=== PATIENT | male | born 1965 | race Caucasian/White ===

== ENCOUNTER 2023-07-21 15:43 | Emergency (ER) | payer MEDICARE, OTHER ==
[~2023-07-21] VITALS: Ht 177.8 cm; Wt 113.4 kg
[2023-07-21 15:45] VITALS: BP_SYST 130; PULSE 100; RESP 20; TEMP 97; O2SAT 100
[2023-07-21] MEDS ORDERED: NACL 0.9% 1,000 ML IV ONE (16:00)
[2023-07-21] MEDS ORDERED: LORazepam 2 MG/ML VIAL IVP ONE (17:15)
[2023-07-21 17:42] LABS: BASOPHILS % (AUTO) 0.2 % (0.0-2.0); EOSINOPHILS # (AUTO) 0.1 K/uL (0.0-0.4); EOSINOPHILS % (AUTO) 0.5 % (0.0-4.0); HEMATOCRIT 27.5 % (36-54); HEMOGLOBIN 8.8 g/dL (14.0-18.0); LYMPHOCYTES # (AUTO) 1.6 K/uL (1.0-5.5); LYMPHOCYTES % (AUTO) 15.4 % (20.5-51.5); MEAN CORPUSCULAR HEMOGLOBIN 32 pg (27-31); MEAN CORPUSCULAR HGB CONC 32 % (32-36); MEAN CORPUSCULAR VOLUME 101 fL (79.0-98.0); MONOCYTES # (AUTO) 0.7 K/uL (0.0-1.0); MONOCYTES % (AUTO) 6.3 % (1.7-9.3); NEUTROPHILS # (AUTO) 8.1 K/uL (1.8-7.7); NEUTROPHILS % (AUTO) 77.6 % (40.0-70.0); PLATELET COUNT (AUTO) 128 K/uL (130-430); RED BLOOD CELL COUNT(AUTO) 2.74 MIL/uL (4.2-6.2); RED CELL DISTRIBUTION WIDTH 16.4 % (9.0-15.0); WHITE BLOOD COUNT (AUTO) 10.5 K/uL (4.8-10.8)
[2023-07-21 17:56] LABS: ALANINE AMINOTRANSFERASE 15 U/L (12-78); ANION GAP 19 (5-15); ASPARTATE AMINOTRANSFERASE 100 U/L (10-37); CALCIUM 8.8 mg/dL (8.4-11.0); CARBON DIOXIDE 15 mmol/L (23-29); CHLORIDE 103 mmol/L (98-107); CREATININE 3.34 mg/dL (0.55-1.30); GFR AFRICAN AMERICAN 25 mL/min (>90); GLUCOSE 61 mg/dL (74-106); SODIUM SERUM 137 mmol/L (136-145); TOTAL BILIRUBIN 4.4 mg/dL (0.0-1.0); TOTAL PROTEIN, SERUM 8.2 g/dL (6.4-8.3); UREA NITROGEN, BLOOD 38 mg/dL (8-21)
[2023-07-21 17:59] LABS: ACETAMINOPHEN < 1 ug/mL (1-30); ALCOHOL, BLOOD < 3 mg/dL (<10); BILIRUBIN,DIRECT 1.8 mg/dL (0.0-0.3); CREATINE KINASE, TOTAL 780 U/L (39-308); GFR NON AFRICAN-AMERICAN 21 mL/min (>90); SALICYLATE < 1 mg/dL (3-30)
[2023-07-21 18:00] LABS: POTASSIUM 3.8 mmol/L (3.5-5.1)
[2023-07-21] MEDS ORDERED: PIPERACILLIN/TAZOBACTAM 2.25 GM in NS 50 ML IV ONE (18:30)
[2023-07-21 18:44] LABS: CKMB RELATIVE INDEX 1.3 (0.0-2.9); CREATINE KINASE MB 9.9 ng/mL (0-3.6)
[2023-07-21 19:51] LABS: INR 2.1 (0.80-1.20); PROTHROMBIN TIME 21.2 SECS (9.5-12.5)
[2023-07-21 20:15] LABS: INFLUENZA TYPE A Negative (NEGATIVE); INFLUENZA TYPE B NEGATIVE (NEGATIVE)
[2023-07-21] MEDS ORDERED: RIFAXIMIN 550 MG TABLET PO ONE (20:15)
[2023-07-21] MEDS ORDERED: LACTULOSE 20 GM/30 ML UDC PO ONE (20:15)
[2023-07-21 20:49] LABS: BILIRUBIN,URINE 2+ (NEGATIVE); BLOOD, URINE 2+ (NEGATIVE); CLARITY/URINE SL CLOUDY (CLEAR); COLOR,URINE YELLOW (YELLOW); GLUCOSE,URINE NEGATIVE (NEGATIVE); KETONES,URINE TRACE (NEGATIVE); LEUKOCYTE ESTERASE ,URINE TRACE (NEGATIVE); NITRITE, URINE NEGATIVE (NEGATIVE); PH,URINE 5.5 (5.0-8.0); PROTEIN URINE 1+ (NEGATIVE)
[2023-07-21] MEDS ORDERED: DEXTROSE 50% JECT 50 ML DISP.SYRIN IVP ONE (21:00)
[2023-07-21 21:21] LABS: BACTERIA,URINE FEW /HPF (None Seen)
[2023-07-21] MEDS ORDERED: PIPERACILLIN/TAZOBACTAM 2.25 GM VIAL IV ONE (23:49)
[2023-07-21] MEDS ORDERED: DEXTROSE 50% JECT 50 ML DISP.SYRIN ONE (23:49)
[2023-07-22] MEDS ORDERED: LACTULOSE 20 GM/30 ML UDC ONE (00:58)
[2023-07-22] MEDS ORDERED: DEXTROSE 50% JECT 50 ML DISP.SYRIN IVP ONE (01:45)
[2023-07-22 03:00] VITALS: BP_SYST 159; PULSE 110; RESP 21; TEMP 97.1; O2SAT 99
== END 2023-07-22 03:00 | disposition short-term general hospital (02) ==
LOC: SED 15:43
DX: K76.82 Hepatic encephalopathy (principal); K74.60 Unspecified cirrhosis of liver; D64.9 Anemia, unspecified; R18.8 Other ascites; N28.9 Disorder of kidney and ureter, unspecified; E16.2 Hypoglycemia, unspecified; R41.82 Altered mental status, unspecified; Z79.899 Other long term (current) drug therapy; Z20.822 Contact with and (suspected) exposure to COVID-19
CPT/HCPCS: 99291; 96365; 70450; 76700; 93971; 71045; 96375; 96361; 87426; 80076; 80048; 82140; 82550; 82553; 82962; 85025; 85610; 85730; 87040; 87086; 84484; 36415; 93005; 73600; 73620; 76376; 83605; 87804 ×2; 81001; 81000; 96376; 81015; G0482; J2060; J2543; J7030; G0480; G0481

== ENCOUNTER 2023-10-30 11:37 | Inpatient (IN) | payer MEDICARE, OTHER ==
[~2023-10-30] VITALS: Ht 172.7 cm; Wt 81.2 kg
[2023-10-30 11:41] VITALS: BP_SYST 112; PULSE 102; RESP 20; TEMP 97.5; O2SAT 97
[2023-10-30 12:56] LABS: BASOPHILS % (AUTO) 0.1 % (0.0-2.0); HEMOGLOBIN 13.2 g/dL (14.0-18.0); LYMPHOCYTES # (AUTO) 0.3 K/uL (1.0-5.5); LYMPHOCYTES % (AUTO) 4.9 % (20.5-51.5); MEAN CORPUSCULAR HEMOGLOBIN 32 pg (27-31); MEAN CORPUSCULAR HGB CONC 33 % (32-36); MEAN CORPUSCULAR VOLUME 96 fL (79.0-98.0); MONOCYTES # (AUTO) 0.1 K/uL (0.0-1.0); MONOCYTES % (AUTO) 1.6 % (1.7-9.3); NEUTROPHILS # (AUTO) 5.2 K/uL (1.8-7.7); NEUTROPHILS % (AUTO) 93.4 % (40.0-70.0); PLATELET COUNT (AUTO) 135 K/uL (130-430); RED BLOOD CELL COUNT(AUTO) 4.16 MIL/uL (4.2-6.2); RED CELL DISTRIBUTION WIDTH 17.4 % (9.0-15.0); WHITE BLOOD COUNT (AUTO) 5.6 K/uL (4.8-10.8)
[2023-10-30 13:14] LABS: INR 2.1 (0.80-1.20); PROTHROMBIN TIME 20.6 SECS (9.5-12.5)
[2023-10-30] MEDS: MORPHINE 2 MG/ML INJ. SYRINGE IVP ONE (13:19)
[2023-10-30 14:04] LABS: ALBUMIN 1.9 g/dL (3.4-4.8); BILIRUBIN,DIRECT 1.1 mg/dL (0.0-0.3); CALCIUM 8.3 mg/dL (8.4-11.0); CREATININE 1.52 mg/dL (0.55-1.30); POTASSIUM 4.1 mmol/L (3.5-5.1); TOTAL BILIRUBIN 2.7 mg/dL (0.0-1.0); TOTAL PROTEIN, SERUM 7.3 g/dL (6.4-8.3)
[2023-10-30] MEDS ORDERED: DEXTROSE 50% JECT 50 ML DISP.SYRIN ONE (14:13)
[2023-10-30] MEDS: DEXTROSE 50% JECT 50 ML DISP.SYRIN IVP ONE ×2 (14:57→16:07)
[2023-10-30] MEDS: D5/0.45 NS 1,000 ML IV ONE (14:57)
[2023-10-30] MEDS: ONDANSETRON HCL 4 MG/2 ML VIAL IVP ONE (16:06)
[2023-10-30 16:56] LABS: APPEARANCE,SPUN,BODY FLUID CLOUDY (CLEAR); BF APPEARANCE UNSPUN HAZY (CLEAR); BODY FLUID COLOR YELLOW (LT YELLOW); SOURCE/TYPE ,BODY FLUID PERITONEAL
[2023-10-30 16:57] LABS: BODY FLUID TOTAL VOLUME 6850 mL; LYMPHOCYTES, BODY FLUID 8 %; MONOCYTES,BODY FLUID 2 %; NEUTROPHIL, BODY FLUID 90 %; RBC, BODY FLUID 200 /uL; WBC, BODY FLUID 1585 /uL
[2023-10-30] MEDS ORDERED: ALBUTEROL SULFATE 0.083% 2.5 MG/3 ML VIAL.NEB INH PRN (17:15)
[2023-10-30 17:21] VITALS: PULSE 103; O2SAT 99
[2023-10-30] MEDS ORDERED: ACETAMINOPHEN 650 MG SUPP.RECT RC ONE (17:24)
[2023-10-30] MEDS ORDERED: MAGNESIUM SULFATE 50 ML IV PRN (17:30)
[2023-10-30] MEDS ORDERED: POTASSIUM CHLORIDE 20 MEQ TABLET.ER PO PRN (17:30)
[2023-10-30] MEDS ORDERED: MORPHINE 2 MG/ML INJ. SYRINGE IVP PRN (17:30)
[2023-10-30] MEDS: ALBUMIN HUMAN 25% 50 ML IV ONE (17:30)
[2023-10-30] MEDS ORDERED: DOCUSATE SODIUM 100 MG CAPSULE PO PRN (17:30)
[2023-10-30] MEDS ORDERED: MUPIROCIN 2% TOPICAL OINTMENT 22 GM NS PRN (17:30)
[2023-10-30] MEDS: NACL 0.9% 1,000 ML IV ONE ×4 (17:31→21:04)
[2023-10-30] MEDS ORDERED: PIPERACILLIN/TAZOBACTAM 3.375 GM/VIAL (ZOSYN) IV ONE (17:35)
[2023-10-30] MEDS ORDERED: MEROPENEM 1 GM IVPB PREMIX 50 ML IV SCH (17:45)
[2023-10-30] MEDS: MEROPENEM 1 GM IVPB PREMIX 50 ML IV ONE (17:45)
[2023-10-30] MEDS: PIPERACILLIN/TAZO 3.375 GM in NS 50 ML IV ONE (18:15)
[2023-10-30] MEDS: ACETAMINOPHEN 650 MG SUPP.RECT RC ONE (18:15)
[2023-10-30] MEDS: D5/0.45 NS 1,000 ML IV SCH (18:16)
[2023-10-30] MEDS: IBUPROFEN 600 MG TABLET PO ONE (18:48)
[2023-10-30] MEDS ORDERED: MEROPENEM 500 MG VIAL IV ONE (19:26)
[2023-10-30] MEDS: ALBUMIN HUMAN 25% 100 ML IV ONE (19:33)
[2023-10-30] MEDS: DEXTROSE 50% JECT 50 ML DISP.SYRIN IVP PRN (20:16)
[2023-10-30] MEDS ORDERED: NOREPINEPHRINE BITARTRATE 4 MG in D5W 246 ML IV PRN (20:30)
[2023-10-30] MEDS ORDERED: NOREPINEPHRINE 4 MG/4 ML VIAL IV ONE (20:46)
[2023-10-30] MEDS: HYDROCORTISONE SOD SUCC 100 MG/2 ML VIAL IVP SCH (21:00)
[2023-10-30] MEDS: NOREPINEPHRINE BITARTRATE 4 MG in D5W 246 ML IV PRN (21:00)
[2023-10-30 21:03] LABS: BODY FLUID GLUCOSE 10 mg/dL; BODY FLUID TOTAL PROTEIN 1.9 g/dL
[2023-10-30 21:55] LABS: BILIRUBIN,URINE 2+ (NEGATIVE); BLOOD, URINE 2+ (NEGATIVE); CLARITY/URINE CLEAR (CLEAR); GLUCOSE,URINE NEGATIVE (NEGATIVE); KETONES,URINE 1+ (NEGATIVE); LEUKOCYTE ESTERASE ,URINE NEGATIVE (NEGATIVE); PROTEIN URINE 1+ (NEGATIVE)
[2023-10-30 22:02] LABS: COLOR,URINE AMBER (YELLOW); NITRITE, URINE NEGATIVE (NEGATIVE)
[2023-10-30 22:03] LABS: BACTERIA,URINE FEW /HPF (None Seen); HYALINE CASTS, URINE 0-10 /LPF (None Seen); MUCUS,URINE None Seen /LPF (None Seen); RBC,URINE 0-3 /HPF (0-3); WBC,URINE 0-3 /HPF (0-3)
[2023-10-30] MEDS ORDERED: VANCOMYCIN HCL 1000 MG/VIAL IV ONE (22:18)
[2023-10-30] MEDS: VANCOMYCIN HCL 1 GM/NS PREMIX 250 ML IV ONE (22:23)
[2023-10-30] MEDS: ACETAMINOPHEN 650 MG SUPP.RECT RC PRN (22:37)
[2023-10-30] MEDS: D10W 1,000 ML IV SCH (23:10)
[2023-10-30] MEDS: DEXTROSE 10%-WATER 500 ML IV STA (23:10)
[2023-10-31] VITALS (10 sets, daily range): BP systolic 74–151; PULSE 93–111; RESP 24–30; TEMP 97; O2SAT 44–58
[2023-10-31] MEDS: ONDANSETRON HCL 4 MG/2 ML VIAL IVP PRN (01:24)
[2023-10-31] MEDS ORDERED: PIPERACILLIN/TAZOBACTAM 3.375 GM/VIAL (ZOSYN) IV ONE ×2 (01:43)
[2023-10-31] MEDS: PIPERACILLIN/TAZO 3.375 GM in NS 50 ML IV SCH (01:55)
[2023-10-31] MEDS ORDERED: NOREPINEPHRINE 4 MG/4 ML VIAL IV ONE ×2 (01:59→05:19)
[2023-10-31] MEDS: ACETAMINOPHEN 325 MG TABLET PO PRN (02:41)
[2023-10-31 04:12] LABS: BASOPHILS % (AUTO) 0.2 % (0.0-2.0); HEMATOCRIT 37.2 % (36-54); HEMOGLOBIN 12.1 g/dL (14.0-18.0); LYMPHOCYTES # (AUTO) 0.6 K/uL (1.0-5.5); LYMPHOCYTES % (AUTO) 3.7 % (20.5-51.5); MEAN CORPUSCULAR HEMOGLOBIN 32 pg (27-31); MEAN CORPUSCULAR HGB CONC 32 % (32-36); MEAN CORPUSCULAR VOLUME 98 fL (79.0-98.0); MONOCYTES # (AUTO) 0.3 K/uL (0.0-1.0); MONOCYTES % (AUTO) 1.7 % (1.7-9.3); NEUTROPHILS # (AUTO) 14.7 K/uL (1.8-7.7); NEUTROPHILS % (AUTO) 94.4 % (40.0-70.0); PLATELET COUNT (AUTO) 101 K/uL (130-430); RED CELL DISTRIBUTION WIDTH 17.5 % (9.0-15.0); WHITE BLOOD COUNT (AUTO) 15.6 K/uL (4.8-10.8)
[2023-10-31 04:24] LABS: CALCIUM 7.2 mg/dL (8.4-11.0); CREATININE 2.15 mg/dL (0.55-1.30); POTASSIUM 3.7 mmol/L (3.5-5.1)
[2023-10-31] MEDS: ONDANSETRON HCL 4 MG/2 ML VIAL IVP ONE (04:29)
[2023-10-31] MEDS: NOREPINEPHR 4 MG/250 mL NS 250 ML IV PRN (08:39)
[2023-10-31] MEDS: RIFAXIMIN 550 MG TABLET PO SCH (09:00)
[2023-10-31] MEDS: MORPHINE 2 MG/ML INJ. SYRINGE IVP PRN (09:03)
[2023-10-31] MEDS: METOCLOPRAMIDE HCL 10 MG/2 ML VIAL IVP ONE (09:16)
[2023-10-31] MEDS ORDERED: DEXTROSE 50% JECT 50 ML DISP.SYRIN ONE ×2 (09:32→14:06)
[2023-10-31] MEDS: NOREPINEPHRINE BITARTRATE 16 MG in D5W 234 ML IV PRN (09:48)
[2023-10-31] MEDS: MORPHINE 2 MG/ML INJ. SYRINGE IVP ONE (11:06)
[2023-10-31] MEDS: LEVOFLOXACIN 250 MG/D5W 50 ML IV SCH (13:45)
[2023-10-31] MEDS ORDERED: PROPOFOL DRIP 100 ML IV PRN (14:30)
[2023-10-31] MEDS: LACTULOSE 20 GM/30 ML UDC PO SCH (15:18)
[2023-10-31 15:38] LABS: BLOOD GAS BASE EXCESS -30.1 mmol/L (-3.0-3.0); BLOOD GAS PO2 80.6 mmHg (75.0-100.0)
[2023-10-31] MEDS ORDERED: SODIUM BICARBONATE 8.4% JECT 50 MEQ/50 ML SYRINGE ONE ×2 (15:47→19:52)
[2023-10-31 16:01] LABS: BLOOD GAS HCO3 8.3 mmol/L (21.0-27.0); BLOOD GAS PCO2 15.5 mmHg (32.0-45.0); BLOOD GAS PH 7.344 (7.350-7.450); BLOOD GAS PO2 285.5 mmHg (75.0-100.0)
[2023-10-31 16:02] LABS: ABG O2 SAT% ESTIMATE 99.7 % (94.0-100.0); ALLEN'S TEST POSITIVE (P); BLOOD GAS BASE EXCESS -14.4 mmol/L (-3.0-3.0)
[2023-10-31 16:08] LABS: BLOOD GAS PCO2 53.8 mmHg (32.0-45.0); BLOOD GAS PH 6.714 (7.350-7.450)
[2023-10-31] MEDS: SODIUM BICARBONATE 8.4% VIAL 50 MEQ/50 ML VIAL INJ ONE (16:08)
[2023-10-31 16:09] LABS: ABG O2 SAT% ESTIMATE 76.8 % (94.0-100.0); ALLEN'S TEST POSITIVE (P); BLOOD GAS HCO3 6.7 mmol/L (21.0-27.0)
[2023-10-31] MEDS: SODIUM BICARBONATE 8.4% VIAL 150 MEQ in D5W 1,000 ML IV SCH (16:42)
[2023-10-31] MEDS: SODIUM BICARBONATE 8.4% JECT 50 MEQ/50 ML SYRINGE IVP ONE ×3 (17:18→21:05)
[2023-10-31] MEDS ORDERED: SODIUM BICARBONATE 0.5 MEQ/ML VIAL INJ ONE (20:00)
[2023-10-31] MEDS ORDERED: NOREPINEPHRINE BITARTRATE IV PRN (21:00)
[2023-10-31] MEDS ORDERED: D5W IV PRN (21:00)
[2023-10-31] MEDS ORDERED: SODIUM BICARBONATE 8.4% JECT 50 MEQ/50 ML SYRINGE IVP ONE ×2 (21:00)
[2023-10-31] MEDS ORDERED: VANCOMYCIN HCL 1,000 MG in NS 250 ML IV SCH (21:00)
[2023-10-31] MEDS: PHENYLEPHRINE HCL 10 MG/ML VIAL (NEOSYNEPHRINE) ONE (22:20)
[2023-10-31] MEDS: VASOPRESSIN 20 UNITS/ML VIAL IV ONE (22:20)
[2023-10-31] MEDS: VASOPRESSIN 20 UNITS in NS 99 ML IV PRN (22:24)
[2023-10-31] MEDS: MEROPENEM 500 MG in NS 50 ML IV SCH (23:04)
[2023-11-01] VITALS (18 sets, daily range): BP systolic 44–121; PULSE 76–142; RESP 22–33; TEMP 96.3–98; O2SAT 16–53
[2023-11-01] MEDS: NOREPINEPHRINE BITARTRATE 16 MG in D5W 234 ML IV PRN (01:20)
[2023-11-01] MEDS: PHENYLEPHRINE HCL 50 MG in NS 245 ML IV PRN (01:20)
[2023-11-01] MEDS: PHENYLEPHRINE HCL 10 MG/ML VIAL (NEOSYNEPHRINE) ONE ×2 (01:41→04:26)
[2023-11-01] MEDS: VASOPRESSIN 20 UNITS/ML VIAL IV ONE (04:25)
[2023-11-01] MEDS: NOREPINEPHRINE 4 MG/4 ML VIAL IV ONE (04:42)
[2023-11-01] MEDS: EPINEPHrine HCL 5 MG in NS 245 ML IV PRN (05:13)
[2023-11-01] MEDS: EPINEPHrine HCL 1 MG/ML VIAL ONE (05:14)
[2023-11-01] MEDS ORDERED: DEXTROSE 50% JECT 50 ML DISP.SYRIN ONE (08:06)
[2023-11-01] MEDS ORDERED: EPINEPHrine JECT 0.1 MG/ML SYR ONE (08:06)
[2023-11-01] MEDS ORDERED: SODIUM BICARBONATE 8.4% JECT 50 MEQ/50 ML SYRINGE ONE (08:06)
[2023-11-01] MEDS ORDERED: EPINEPHrine HCL 10 MG in NS 240 ML IV PRN (08:30)
[2023-11-01 08:52] LABS: HEMATOCRIT 26.3 % (36-54); HEMOGLOBIN 7.4 g/dL (14.0-18.0); MEAN CORPUSCULAR HEMOGLOBIN 32 pg (27-31); MEAN CORPUSCULAR HGB CONC 28 % (32-36); MEAN CORPUSCULAR VOLUME 114 fL (79.0-98.0); RED CELL DISTRIBUTION WIDTH 18.7 % (9.0-15.0)
[2023-11-01 08:54] LABS: PLATELET COUNT (AUTO) 68 K/uL (130-430)
[2023-11-01 08:56] LABS: WHITE BLOOD COUNT (AUTO) 3.5 K/uL (4.8-10.8)
[2023-11-01 09:06] LABS: CREATININE 2.88 mg/dL (0.55-1.30)
[2023-11-01 09:43] LABS: POTASSIUM 9.7 mmol/L (3.5-5.1)
[2023-11-01 09:45] LABS: CALCIUM 6.9 mg/dL (8.4-11.0)
[2023-11-01 10:27] LABS: BAND % (MANUAL) 14 % (0-6); LYMPHOCYTES % (MANUAL) 55 % (20-46)
[2023-11-01 10:28] LABS: ANISOCYTOSIS 1+; BASOPHILS % (MANUAL) 0 % (0-2); EOSINOPHILS % (MANUAL) 0 % (0-7); METAMYELOCYTES % 8 % (0-0); MONOCYTES % (MANUAL) 15 % (0-11); PLATELET ESTIMATE DECREASED (ADEQUATE)
== END 2023-11-01 17:13 | DRG 871 ==
LOC: SED 11:37 → STU 17:13 → SIC 18:40
PROVIDERS: ADMIT Family Medicine; ATTEND Family Medicine
PROC: 0W9G3ZZ Drainage of Peritoneal Cavity, Percutaneous Approach (ICD-10-PCS; principal; 2023-10-30)
PROC: 02HV33Z Insertion of Infusion Device into Superior Vena Cava, Percutaneous Approach (ICD-10-PCS; 2023-10-30)
PROC: B548ZZA Ultrasonography of Superior Vena Cava, Guidance (ICD-10-PCS; 2023-10-30)
PROC: 0BH17EZ Insertion of Endotracheal Airway into Trachea, Via Natural or Artificial Opening (ICD-10-PCS; 2023-10-31)
PROC: 5A1935Z Respiratory Ventilation, Less than 24 Consecutive Hours (ICD-10-PCS; 2023-10-31)
PROC: 5A12012 Performance of Cardiac Output, Single, Manual (ICD-10-PCS; 2023-11-01)
DX: A41.9 Sepsis, unspecified organism (principal); G93.41 Metabolic encephalopathy; K65.2 Spontaneous bacterial peritonitis; R65.21 Severe sepsis with septic shock; N17.0 Acute kidney failure with tubular necrosis; E87.1 Hypo-osmolality and hyponatremia; K76.6 Portal hypertension; I46.9 Cardiac arrest, cause unspecified; K76.82 Hepatic encephalopathy; E83.51 Hypocalcemia; D64.9 Anemia, unspecified; R06.03 Acute respiratory distress; K70.31 Alcoholic cirrhosis of liver with ascites; I95.9 Hypotension, unspecified; Z96.642 Presence of left artificial hip joint
CPT/HCPCS: 36415; 36600; 49083; 71045; 80048; 80076; 81000; 81001; 81015; 82140; 82150; 82803; 82947; 82948; 83605; 83690; 83735; 84157; 85007; 85025; 85027; 85610; 85730; 87040; 87070; 87081; 87186; 87205; 89051; 89060; 92950; 94002; 94003; 94640; 94760; 99291; G0378; J0171; J1720; J1956; J2185; J2270; J2370; J2405; J2543; J2704; J2765; J3370; J3490; J7050; J7060; P9046